=== PATIENT | male | born 1965 | race Caucasian/White ===

== ENCOUNTER → 2018-04-05 | Outpatient (CLI) | payer OTHER ==
--- NOTE | 2018-04-05 11:57 | RADIOLOGY IMAGING REPORT ---
FACILITY: [facility] - [place] PATIENT NAME: Juan Eng : 1965 MR: [id number] V: [id number] EXAM DATE: ORDERING PHYSICIAN: DAMON LAINEZ TECHNOLOGIST: Location: Patient: Juan Eng : 1965 Visit/Account:[id number] Date of Sevice: 04/05/2018 Thyroid Ultrasound HISTORY: Thyroid nodule. COMPARISON: None. FINDINGS: SIZE: Normal. Right lobe: 5.0 x 1.8 x 2.1 cm Left lobe: 4.1 x 1.1 x 1.5 cm Isthmus: 4 mm PARENCHYMA: Homogeneous. NODULES: Right lobe: * Inferior pole hypoechoic, solid nodule measures 6 mm x 6 mm x 3 mm Left lobe: * Inferior pole hypoechoic, solid nodule measures 9 mm x 8 mm x 5 mm Isthmus: * None discrete. VASCULARITY: Within normal limits. ADDITIONAL FINDINGS: None. IMPRESSION: 1. Subcentimeter hypoechoic thyroid nodules bilaterally. These do not meet current criteria for fin e-needle aspiration according to the [place] thyroid Association guidelines as reported below. REFERENCE: 2015 [place] Thyroid [employer] Management Guidelines for Adult Patients with Thyroid Nodules and D ifferentiated Thyroid Cancer: The [place] Thyroid Association Guidelines Task Force on Thyroid Nodul es and Differentiated Thyroid Cancer. SONOGRAPHIC PATTERNS: * Benign: Purely cystic nodules (no solid component); estimated risk of malignancy <1 percent; no bi opsy recommended. * Very Low Suspicion: Spongiform or partially cystic nodules without any of the sonographic features described in low, intermediate, or high suspicion patterns; estimated risk of malignancy <3 percent; consider FNA at > 2 cm (Observation without FNA is also a reasonable option). * Low Suspicion: Isoechoic or hyperechoic solid nodule, or partially cystic nodule with eccentric so lid areas, without microcalcification, irregular margin or ETE (extra-thyroidal extension), or taller than wide shape; estimated risk of malignancy 5-10 percent; recommend FNA at >1.5 cm. * Intermediate Suspicion: Hypoechoic solid nodule with smooth margins without microcalcifications, E TE (extra-thyroidal extension), or taller than wide shape; estimated risk of malignancy 10-20 percent ; recommend FNA at > 1 cm. * High Suspicion: Solid hypoechoic nodule or solid hypoechoic component of a partially cystic nodule with one or more of the following features: irregular margins (infiltrative, microlobulated), microc alcifications, taller than wide shape, rim calcifications with small extrusive soft tissue component, evidence of ETE (extra-thyroidal extension); estimated risk of malignancy >70-90 percent; recommend FNA at > 1 cm. NOTES: * Although a sonographically suspicious subcentimeter thyroid nodule without evidence of extrathyroi bryan extension or sonographically suspicious lymph nodes may be observed with close sonographic follow -up rather than pursuing immediate FNA, patient age and preference may modify decision-making. A > 50% interval increase in nodule volume and/or development of new suspicious sonographic features are felt to be a valid reasons for potential re-aspiration of a nodule previously shown to have benig n FNA cytology. Report Dictated By: Rosas Gao at 04/05/2018 11:36 AM Report E-Signed By: Rosas Gao at 04/05/2018 11:53 AM NUZHATN:LUIS
== END ==
LOC: US 10:29
PROVIDERS: ATTEND Internal Medicine
DX: E04.2 Nontoxic multinodular goiter (principal)
CPT/HCPCS: 76536

== ENCOUNTER → 2018-04-08 | Outpatient (CLI) | payer OTHER ==
[2018-04-08 07:54] LABS: LDL CHOLESTEROL 74 mg/dl
== END ==
LOC: LAB 06:41
PROVIDERS: ATTEND Nurse Practitioner Psychiatric/Mental Health
DX: Z00.01 Encounter for general adult medical examination with abnormal findings (principal); Z79.899 Other long term (current) drug therapy
CPT/HCPCS: 36415; 82040; 82247; 82306; 82310; 82374; 82435; 82465; 82565; 82947; 83036; 83718; 84075; 84132; 84155; 84295; 84439; 84443; 84450; 84460; 84478; 84480; 84520; 85027

== ENCOUNTER → 2018-05-14 | Outpatient (CLI) | payer OTHER ==
[~2018-05-14] MED LIST: 5-HY50CA4 PO; AMIT-108 PO; ATOR40TA69 PO; BACL-1 PO; BREX1TAB PO; DESV100T14 PO; EMPA25TA PO; IMIQ1CRE5 TP; INSU300I SQ; LOSA100T67 PO; METO25TA93 PO; METXR500 PO; MULT-820 PO; OXYB5TAB86 PO; PANT40TA65 PO; TADA5TAB7 PO; VITA1CAP46 PO
[2018-05-14 14:20] LABS: PLATELET COUNT, AUTOMATED 269 K/uL (150-450)
== END ==
LOC: LAB 13:45
PROVIDERS: ATTEND Nurse Practitioner Family
DX: Z12.5 Encounter for screening for malignant neoplasm of prostate (principal); R50.9 Fever, unspecified; R10.9 Unspecified abdominal pain; R19.7 Diarrhea, unspecified
CPT/HCPCS: 36415; 82040; 82247; 82248; 82310; 82374; 82435; 82565; 82947; 84075; 84132; 84153; 84155; 84295; 84450; 84460; 84520; 85025; 86703; 86706; 86707; 87340; 87350; 87522

== ENCOUNTER → 2018-07-30 | Outpatient (CLI) | payer OTHER ==
[~2018-07-30] MED LIST changes: +CYCL10TA29 PO; +FLU60VIA41 IM; +IBUP800T37 PO; -LOSA100T67 PO; +LOSA100T69 PO; +METH4TAB66 PO; +OXYGENHOME INH
--- NOTE | 2018-07-30 12:38 | RADIOLOGY IMAGING REPORT ---
FACILITY: [facility] - [place] PATIENT NAME: Juan Eng : 1965 MR: [id number] V: [id number] EXAM DATE: ORDERING PHYSICIAN: SHAUN CHAO TECHNOLOGIST: Location: [facility] Patient: Juan Eng : 1965 Visit/Account:[id number] Date of Sevice: 07/30/2018 LUMBAR SPINE 4 VIEWS Indication: Back pain., Low back pain Comparison: None available FINDINGS: There are 5 lumbar type vertebral bodies. There is no acute osseous or acute alignment abnormality. There is mild diffuse spondylitic change noted. No spondylolisthesis is identified. Mild bilateral degenerative facet arthropathy is noted at L5-S1. The vertebral body heights appear well-maintained. IMPRESSION: 1. Mild multilevel degenerative disc space disease, no acute abnormality noted Report Dictated By: Robbin Silvestre at 07/30/2018 12:33 PM Report E-Signed By: Robbin Silvestre at 07/30/2018 12:34 PM WSN:[id number]
== END ==
LOC: RAD 12:01
PROVIDERS: ATTEND Nurse Practitioner Primary Care
DX: M51.35 Other intervertebral disc degeneration, thoracolumbar region (principal)
CPT/HCPCS: 72120

== ENCOUNTER 2018-08-05 08:28 | Emergency (ER) | payer OTHER ==
[2018-08-05] MEDS ORDERED: VITAMIN D AND C (08:46)
--- NOTE | 2018-08-05 09:12 | ER Report ---
History and Physical Time Seen By MD: 09:00 Hx. of Stated Complaint: PT TWEAKED HIS BACK 2 WEEKS AGO, WAS PUT ON MUSCLE RELAXANTS. NOW HE NOTES HIS CONDITION IS WORSENINGAND THE BOTTOM OF L FOOT IS NUMB SINCE YESTERDAY. WAS TOLD BY HIS PCP TO COME HERE HPI/ROS CHIEF COMPLAINT: back pain HISTORY OF PRESENT ILLNESS: Pt presents with back pain that has been ongoing x 2 wks; noticed pop in L back when he was lifting something; has had continued pain on left side of back, radiating down l leg. Pain has not been releived by muscle relaxants. Pain is moderate, exacerbated by movements. He notes bottom of l foot paresthesias. Denies weakness, new incontinence, perineal paresthesias, fevers, chills. REVIEW OF SYSTEMS: Constitutional: No fever, no chills. Eyes: No discharge. ENT: No sore throat. Cardiovascular: No chest pain, no palpitations. Respiratory: No cough, no shortness of breath. Gastrointestinal: No abdominal pain, no vomiting. Genitourinary: no incontinence Musculoskeletal: left gluteal pain, no mid back pain Skin: No rashes. Neurological: No headache. Remainder of the 14 system rev: Yes Allergies: Coded Allergies: povidone-iodine (Verified Allergy, Mild, RASH, 08/05/18) soap (Verified Allergy, Mild, RASH, 08/05/18) amoxicillin (Unverified Allergy, Unknown, 08/05/18) Home Meds Active Scripts Oxygen (OXYGEN) Inha, 2 L INH HS, #2 L Prov:BRUCE TAYLOR APRN-C 08/02/18 Ibuprofen (IBUPROFEN) 800 Mg Tablet, 1 TAB PO Q8H PRN for PAIN, #20 TAB 0 Refills Prov:SHAUN CHAO DNP, FNP-BC 07/30/18 Methylprednisolone (METHYLPREDNISOLONE) 4 Mg Tab.ds.pk, 4 MG PO DIRECTED, #1 PACK 0 Refills Prov:SHAUN CHAO DNP, FNP-BC 07/30/18 Cyclobenzaprine Hcl (CYCLOBENZAPRINE HCL) 10 Mg Tablet, 1 TAB PO TID PRN for BACK PAIN, #15 TAB 0 Refills Prov:SHAUN CHAO DNP, FNP-BC 07/30/18 Oxybutynin Chloride (OXYBUTYNIN CHLORIDE) 5 Mg Tablet, 1 TAB PO QDAY, #90 TAB 0 Refills Prov:BRUCE TAYLOR APRN-C 06/14/18 Metoprolol Tartrate (METOPROLOL TARTRATE) 25 Mg Tablet, 1 TAB PO BID, #60 TAB 12 Refills Prov:BRUCE TAYLOR APRN-C 05/14/18 Atorvastatin Calcium (ATORVASTATIN CALCIUM) 40 Mg Tablet, 1 TAB PO DAILY, #30 TAB 12 Refills Prov:BRUCE TAYLOR APRN-C 05/14/18 Reported Medications [Vitamin D And C] No Conflict Check 08/05/18 Tadalafil (CIALIS) Unknown Strength Tablet, PO QDAY 05/13/18 Vitamin B Complex (VITAMIN B COMPLEX) 1 Each Capsule, 1 EACH PO DAILY, CAPSULE 05/13/18 5-Hydroxytryptophan (5-HTP) 50 Mg Capsule, 50 MG PO DAILY, CAPSULE 05/13/18 Multivitamin (MULTIVITAMINS) 1 Each Tablet, 1 TAB PO DAILY, TAB 05/13/18 Insulin Glargine,Hum.rec.anlog (Quirino Leary) 300 Unit/1 Ml Insuln.pen, 16 UNIT SQ DAILY 05/13/18 Metformin Hcl (METFORMIN HCL ER) 500 Mg Tabcr, 2 TAB PO BID 05/13/18 Baclofen (BACLOFEN) 10 Mg Tablet, 1 TAB PO BID 05/13/18 Amitriptyline Hcl (AMITRIPTYLINE HCL) 50 Mg Tablet, 1 TAB PO QHS 05/13/18 Desvenlafaxine Succinate (Desvenlafaxine Succinate ER) 100 Mg Tab.er.24h, 1 TAB PO DAILY 05/13/18 Empagliflozin (Jardiance) 25 Mg Tablet, 1 TAB PO DAILY 05/13/18 Brexpiprazole (Rexulti) 1 Mg Tablet, 1 TAB PO DAILY 05/13/18 Losartan Potassium (LOSARTAN POTASSIUM) 100 Mg Tablet, 1 TAB PO DAILY 05/13/18 Pantoprazole Sodium (PANTOPRAZOLE SODIUM) 40 Mg Tablet.dr, 1 TAB PO DAILY 05/13/18 Discontinued Scripts Imiquimod (IMIQUIMOD) 1 Each Cream.pack, 1 JUAN MANUEL TP Mon, Weds, Fri for 30 Days, #30 GM 1 Refill Apply thin layer 3 days per week and leave in place for 8 hours then wash with mild soap and water. Prov:BRUCE TAYLOR TIMOTEO BULLET LUBRICANT MIXER-C 04/23/18 Reviewed Nurses Notes: Yes Smoking Status: Current: Every Day Smoker Hx Substance Use Disorder: No Hx Alcohol Use: Yes (RARE) Constitutional Vital Sign - Last 24 Hours 08/05/18 08/05/18 08:38 09:16 Temp 99.0 Pulse 89 79 Resp 20 B/P (MAP) 132/82 115/85 (95) Pulse Ox 95 95 O2 Delivery Room Air Physical Exam General Appearance: [The patient is alert, has no immediate need for airway protection and no signs of toxicity.] Pupils equal and round no pallor or injection. ENT, Mouth: Mucous membranes are moist. Respiratory: There are no retractions, lungs are clear to auscultation. Cardiovascular: Regular rate and rhythm. Gastrointestinal: Abdomen is soft and non tender, no masses, bowel sounds normal. Neurological: alert, oriented, no focal neurologic deficits Skin: Warm and dry, no rashes. Musculoskeletal: Extremities are nontender, nonswollen and have full range of motion. Pt has no midline back ttp, no paraspinal lumbar ttp. He has left gluteal ttp that partially reproduces symptoms. + SLR on left. Nl rectal tone. No foot drop. 5/5 ms throughout lower ext. Nl cremasterics. DIFFERENTIAL DIAGNOSIS: After history and physical exam differential diagnosis w as considered for back pain including but not limited to muscular pain, cauda equina, herniated disc, spine fracture, intra-abdominal causes and urinary tract infection. Medical Decision Making ED Course/Re-evaluation ED Course Pt presents presumably for eval for cauda equina. He has sgs/symptoms very c/w sciatica; he does not have clincal e/o cauda equina. Does not want further pain medication at this time. I discussed outpt management and SRP's; pt comfortable with this plan. Decision to Disposition Date: Aug 05, 2018 Decision to Disposition Time: 09:10 Depart Departure Latest Vital Signs Vital Signs Date Time Temp Pulse Resp B/P (MAP) Pulse Ox O2 Delivery O2 Flow Rate FiO2 08/05/18 09:16 79 115/85 (95) 95 08/05/18 08:38 99.0 20 Room Air Impression: Primary Impression: Sciatica Condition: Condition Unchanged Disposition: HOME OR SELF-CARE Referrals: BRUCE TAYLOR APRN BULLET LUBRICANT MIXER-C (PCP) Patient Instructions: Sciatica (ED) Additional Instructions: As we discussed, please return immediately for foot weakness, numbness around groin, inability to have an erection, or any concerns. Stretching daily, especially before bed and first thing in the morning is important. Accupressure with a tennis ball may help Massage may help If symptoms do not improve in 1 week, I recommend your primary doctor refer you to a physical therapist if needed. Problem Qualifiers Primary Impression: Sciatica Laterality: left Qualified Codes: M54.32 - Sciatica, left side BRADY THORNTON MD Aug 05, 2018 09:12
[2018-08-05 09:16] VITALS: BP 115/85
[2018-08-09] MEDS ORDERED: OXYB5TAB86 PO (12:59)
== END 2018-08-05 09:18 | disposition home or self-care (01) ==
LOC: ER 08:52
DX: M54.32 Sciatica, left side (principal)
CPT/HCPCS: 99281

== ENCOUNTER → 2018-10-21 | Outpatient (CLI) | payer OTHER ==
[~2018-10-21] MED LIST changes: -LOSA100T69 PO; +LOSA100T75 PO; +VITAMIN D AND C
[2018-10-21 14:07] LABS: PLATELET COUNT, AUTOMATED 285 K/uL (150-450)
--- NOTE | 2018-10-21 14:51 | RADIOLOGY IMAGING REPORT ---
FACILITY: [facility] [place] PATIENT NAME: Juan Eng : 1965 MR: [id number] V: [id number] EXAM DATE: ORDERING PHYSICIAN: BRUCE TAYLOR TECHNOLOGIST: Location: [facility] Patient: Juan Eng : 1965 Visit/Account:[id number] Date of Sevice: 10/21/2018 2 VIEWS CHEST INDICATION: Fever and body aches. History of smoking. COMPARISON: None available FINDINGS: Cardiomediastinal silhouette and pulmonary vessels within normal limits. There is no focal infiltrate or lobar consolidation. There is no pneumothorax or pleural effusion. No nodule. Upper abdomen is unremarkable. No acute bony abnormality. IMPRESSION: 1. No acute cardiopulmonary process. Report Dictated By: Josue Rodriges at 10/21/2018 2:42 PM Report E-Signed By: Josue Rodriges at 10/21/2018 2:44 PM WSN:[id number]
== END ==
LOC: LAB 13:51
PROVIDERS: ATTEND Nurse Practitioner Family
DX: R50.9 Fever, unspecified (principal)
CPT/HCPCS: 36415; 71046; 81001; 82040; 82247; 82310; 82374; 82435; 82565; 82947; 84075; 84132; 84155; 84295; 84450; 84460; 84520; 85025; 86140

== ENCOUNTER 2018-11-29 18:02 | Emergency (ER) | payer OTHER ==
[2018-11-29] MEDS ORDERED: INSU100I8 SQ (18:09)
[2018-11-29] MEDS ORDERED: ASPIRIN 81 MG CHEW CHEW ONE (18:10)
--- NOTE | 2018-11-29 18:11 | ER Report ---
History and Physical Time Seen By MD: 18:11 HPI/ROS CHIEF COMPLAINT: chest pain HISTORY OF PRESENT ILLNESS: This is a 53 year old male. He started having left sternal chest pain at about 1600 today. [place] flushing as well. Mild chest tightness, but not short of breath. Was at rest when this happened. Does not change with exertion. Mild nausea, no vomiting. Has risk factors of Diabetes, Hypertention, Hyperlipidemia, smoking. Had a cath about 10 years ago, negative. Family history of cardiac and stroke. He has sleep apnea, but no problem noel athing today. No recent illness, sore throat, congestion. Normal bowel and bladder function. No fevers/chills, cough. Also with some anxiety. Allergies: Coded Allergies: povidone-iodine (Verified Allergy, Mild, RASH, 11/29/18) soap (Verified Allergy, Mild, RASH, 11/29/18) amoxicillin (Unverified Allergy, Unknown, 11/29/18) Home Meds Active Scripts Oxybutynin Chloride (OXYBUTYNIN CHLORIDE) 5 Mg Tablet, 1 TAB PO QDAY, #90 TAB 1 Refill Prov:BRUCE TAYLOR APRN-C 08/09/18 Oxygen (OXYGEN) Inha, 2 L INH HS, #2 L Prov:BRUCE TAYLOR APRN-C 08/02/18 Ibuprofen (IBUPROFEN) 800 Mg Tablet, 1 TAB PO Q8H PRN for PAIN, #20 TAB 0 Refills Prov:SHAUN CHAO DNP [facility]- 07/30/18 Cyclobenzaprine Hcl (CYCLOBENZAPRINE HCL) 10 Mg Tablet, 1 TAB PO TID PRN for RONIT K PAIN, #15 TAB 0 Refills Prov:SHAUN CHAO DNP, [facility]- 07/30/18 Metoprolol Tartrate (METOPROLOL TARTRATE) 25 Mg Tablet, 1 TAB PO BID, #60 TAB 12 Refills Prov:BRUCE TAYLOR APRNPAshokC 05/14/18 Atorvastatin Calcium (ATORVASTATIN CALCIUM) 40 Mg Tablet, 1 TAB PO DAILY, #30 TAB 12 Refills Prov:BRUCE TAYLOR APRNC 05/14/18 Reported Medications Insulin Degludec (Tresiba Flextouch U-100) 100 Unit/Ml (3 Ml) Insuln.pen, 19 UNITS SQ 11/29/18 [Vitamin D And C] No Conflict Check 08/05/18 Tadalafil (CIALIS) Unknown Strength Tablet, PO QDAY 05/13/18 Vitamin B Complex (VITAMIN B COMPLEX) 1 Each Capsule, 1 EACH PO DAILY, CAPSULE 05/13/18 Multivitamin (MULTIVITAMINS) 1 Each Tablet, 1 TAB PO DAILY, TAB 05/13/18 Metformin Hcl (METFORMIN HCL ER) 500 Mg Tabcr, 2 TAB PO BID 05/13/18 Amitriptyline Hcl (AMITRIPTYLINE HCL) 50 Mg Tablet, 1 TAB PO QHS 05/13/18 Desvenlafaxine Succinate (Desvenlafaxine Succinate ER) 100 Mg Tab.er.24h, 1 TAB PO DAILY 05/13/18 Empagliflozin (Jardiance) 25 Mg Tablet, 1 TAB PO DAILY 05/13/18 Brexpiprazole (Rexulti) 1 Mg Tablet, 1 TAB PO DAILY 05/13/18 Pantoprazole Sodium (PANTOPRAZOLE SODIUM) 40 Mg Tablet.dr, 1 TAB PO DAILY 05/13/18 Discontinued Reported Medications 5-Hydroxytryptophan (5-HTP) 50 Mg Capsule, 50 MG PO DAILY, CAPSULE 05/13/18 Insulin Glargine,Hum.rec.anlog (Quirino Leary) 300 Unit/1 Ml Insuln.pen, 16 UNIT SQ DAILY 05/13/18 Baclofen (BACLOFEN) 10 Mg Tablet, 1 TAB PO BID 05/13/18 Losartan Potassium (LOSARTAN POTASSIUM) 100 Mg Tablet, 1 TAB PO DAILY 05/13/18 Discontinued Scripts Methylprednisolone (METHYLPREDNISOLONE) 4 Mg Tab.ds.pk, 4 MG PO DIRECTED, #1 PACK 0 Refills Prov:SHAUN CHAO DNP, BOMB TECHNICIAN-BC 07/30/18 Reviewed Nurses Notes: Yes Smoking Status: Current: Every Day Smoker Hx Substance Use Disorder: No Hx Alcohol Use: Yes (RARE) Constitutional Vital Sign - Last 24 Hours 11/29/18 11/29/18 11/29/18 11/29/18 18:05 18:06 18:17 18:32 Temp 98.4 Pulse 89 92 90 Resp 16 11 21 B/P (MAP) 145/90 145/90 (108) 126/106 (113) Pulse Ox 96 96 91 O2 Delivery Room Air 11/29/18 11/29/18 11/29/18 11/29/18 18:40 18:47 19:00 19:02 Pulse 87 89 Resp 10 9 B/P (MAP) 129/86 (100) 127/82 (97) Pulse Ox 90 89 11/29/18 11/29/18 11/29/18 11/29/18 19:17 19:20 19:47 20:00 Pulse 85 82 Resp 16 11 B/P (MAP) 132/88 (103) 125/85 (98) Pulse Ox 91 92 11/29/18 11/29/18 11/29/18 11/29/18 20:05 20:30 20:35 21:00 Pulse 83 81 Resp 11 23 B/P (MAP) 124/87 (99) 117/79 (92) Pulse Ox 93 93 11/29/18 11/29/18 11/29/18 11/29/18 21:05 21:35 21:40 22:10 Pulse 82 79 78 85 Resp 19 19 20 13 Pulse Ox 94 92 93 90 11/29/18 11/29/18 11/29/18 11/29/18 22:40 23:10 23:15 23:30 Pulse 87 88 84 84 Resp 10 14 8 14 B/P (MAP) 154/151 (152) Pulse Ox 88 89 89 88 11/29/18 23:45 Pulse 79 Resp 10 Pulse Ox 90 Physical Exam General Appearance: The patient is alert. No acute distress, but a little anxious. Eyes: Pupils are equal, round. No pallor, injection or icterus. ENT: Mucous membranes are moist. Normal oral mucosa. Posterior oropharynx is normal. Neck: Supple and non tender. Respiratory: Lungs are clear to auscultation. Cardiovascular: Regular rate and rhythm. No murmurs, gallops or rubs. Normal capillary refill. Gastrointestinal: Abdomen is soft and non tender. Nondistended. Normal active bowel sounds. Neurological: Alert and oriented x3. No focal neurologic deficits Skin: Warm and dry. Musculoskeletal: Extremities are nontender. No tenderness in palpation of the back\spine. DIFFERENTIAL DIAGNOSIS: After history and physical exam, differential diagnosis was considered for chest pain including but not limited to myocardial ischemia, pericarditis pulmonary embolus, chest wall pain, pleural inflammation and pulmonary infectious causes. Medical Decision Making Data Points Result Diagram: 11/29/18180911/29/181809 Laboratory Hematology Test 11/29/18 18:10 11/29/18 18:14 11/29/18 21:13 Red Blood Count 5.17 M/uL (4.00-5.60) Mean Corpuscular Volume 89.0 fL (80.0-96.0) Mean Corpuscular Hemoglobin 30.5 pg (26.0-33.0) Mean Corpuscular Hemoglobin Concent 34.2 g/dL (32.0-36.0) Red Cell Distribution Width 13.8 % (11.5-14.5) Mean Platelet Volume 9.2 fL (7.2-11.1) Neutrophils (%) (Auto) 55.5 % (39.4-72.5) Lymphocytes (%) (Auto) 30.8 % (17.6-49.6) Monocytes (%) (Auto) 9.7 % (4.1-12.4) Eosinophils (%) (Auto) 3.3 % (0.4-6.7) Basophils (%) (Auto) 0.7 % (0.3-1.4) Nucleated RBC Relative Count (auto) 0.0 /100WBC Neutrophils # (Auto) 4.4 K/uL (2.0-7.4) Lymphocytes # (Auto) 2.5 K/uL (1.3-3.6) Monocytes # (Auto) 0.8 K/uL (0.3-1.0) Eosinophils # (Auto) 0.3 K/uL (0.0-0.5) Basophils # (Auto) 0.1 K/uL (0.0-0.1) Nucleated RBC Absolute Count (auto) 0.00 K/uL Sodium Level 141 mmol/L (137-145) Potassium Level 3.2 mmol/L (3.5-5.0) Chloride Level 103 mmol/L (98-107) Carbon Dioxide Level 27 mmol/L (22-30) Blood Urea Nitrogen 12 mg/dl (9-21) Creatinine 1.10 mg/dl (0.66-1.25) Glomerular Filtration Rate Calc > 60.0 Random Glucose 203 mg/dl (75-110) Calcium Level 8.4 mg/dl (8.4-10.2) Total Bilirubin 0.9 mg/dl (0.2-1.3) Aspartate Amino Transf (AST/SGOT) 25 U/L (0-35) Alanine Aminotransferase (ALT/SGPT) 29 U/L (0-56) Alkaline Phosphatase 106 U/L (0-126) Total Protein 7.6 g/dl (6.3-8.2) Albumin 4.5 g/dl (3.5-5.0) D-Dimer Quantitative (PE/DVT) < 0.27 ug/ml (0-0.50) Troponin I < 0.012 ng/ml Chemistry Test 11/29/18 18:10 11/29/18 18:14 11/29/18 21:13 White Blood Count 8.0 k/uL (4.5-11.0) Red Blood Count 5.17 M/uL (4.00-5.60) Hemoglobin 15.7 g/dL (14.0-18.0) Hematocrit 46.0 % (42.0-52.0) Mean Corpuscular Volume 89.0 fL (80.0-96.0) Mean Corpuscular Hemoglobin 30.5 pg (26.0-33.0) Mean Corpuscular Hemoglobin Concent 34.2 g/dL (32.0-36.0) Red Cell Distribution Width 13.8 % (11.5-14.5) Platelet Count 268 K/uL (150-450) Mean Platelet Volume 9.2 fL (7.2-11.1) Neutrophils (%) (Auto) 55.5 % (39.4-72.5) Lymphocytes (%) (Auto) 30.8 % (17.6-49.6) Monocytes (%) (Auto) 9.7 % (4.1-12.4) Eosinophils (%) (Auto) 3.3 % (0.4-6.7) Basophils (%) (Auto) 0.7 % (0.3-1.4) Nucleated RBC Relative Count (auto) 0.0 /100WBC Neutrophils # (Auto) 4.4 K/uL (2.0-7.4) Lymphocytes # (Auto) 2.5 K/uL (1.3-3.6) Monocytes # (Auto) 0.8 K/uL (0.3-1.0) Eosinophils # (Auto) 0.3 K/uL (0.0-0.5) Basophils # (Auto) 0.1 K/uL (0.0-0.1) Nucleated RBC Absolute Count (auto) 0.00 K/uL Glomerular Filtration Rate Calc > 60.0 Calcium Level 8.4 mg/dl (8.4-10.2) Total Bilirubin 0.9 mg/dl (0.2-1.3) Aspartate Amino Transf (AST/SGOT) 25 U/L (0-35) Alanine Aminotransferase (ALT/SGPT) 29 U/L (0-56) Alkaline Phosphatase 106 U/L (0-126) Total Protein 7.6 g/dl (6.3-8.2) Albumin 4.5 g/dl (3.5-5.0) D-Dimer Quantitative (PE/DVT) < 0.27 ug/ml (0-0.50) Troponin I < 0.012 ng/ml Coagulation Test 11/29/18 18:14 D-Dimer Quantitative (PE/DVT) < 0.27 ug/ml EKG/Imaging EKG Interpretation 12 lead EKG: At 1810, initial EKG Rhythm: Normal sinus rhythm, rate 89 [place]: normal QRS: normal ST segments: normal 12 lead EKG: Repeat EKG at 2107 Rhythm: normal sinus rhythm, rate 77 [place]: normal QRS: normal ST segments: normal Imaging Examination: CHEST PA LAT Comparison: 10/21/2018. History: Chest pain. Smoker. Findings: No consolidation, nodule, or evidence of acute peribronchial inflammation. No pneumothorax, edema, or effusion. Cardiac and hilar contour size is normal. Visualized bowel gas pattern is unremarkable. Osseous structures are intact. IMPRESSION: No evidence of acute cardiopulmonary disease. Report Dictated By: Sergey Chan MD at 11/29/2018 6:29 PM ED Course/Re-evaluation Clinical Indication for ER IV: Hydration, IV Access ED Course After my initial evaluation, cardiac workup was begun. The patient did receive aspirin. Initial EKG was negative. Imaging negative and labs unremarkable. Repeat EKG and troponin was done later on and again negative. We had a long discussion regarding the difference treating heart attack and angina, and at this time would recommend follow-up stress testing given his risk factors. He expressed understanding and will talk to his primary care doctor about getting set up with funeral home location manager to do this. Labs only showed a mild decrease in his potassium, and blood sugar being slightly elevated at 203. Decision to Disposition Date: Nov 29, 2018 Decision to Disposition Time: 23:47 Depart Departure Latest Vital Signs Vital Signs Date Time Temp Pulse Resp B/P (MAP) Pulse Ox O2 Delivery O2 Flow Rate FiO2 11/29/18 23:45 79 10 90 11/29/18 23:30 154/151 (152) 11/29/18 18:05 98.4 Room Air Impression: Primary Impression: Chest pain Condition: Improved Disposition: HOME OR SELF-CARE Referrals: BRUCE TAYLOR APRN (PCP) Patient Instructions: Chest Pain (ED) Additional Instructions: chest pain workup was negative for heart attack, blood clots, pneumonia, or other serious problem tonight. Based on your risk factors, we would recommend that the next step would be to have a stress test done. Talk to your primary care provider tomorrow about arranging follow-up with them or with cardiology. Return if needed for recurrent symptoms, worse chest pain, worse shortness of breath. Problem Qualifiers Primary Impression: Chest pain Chest pain type: unspecified Qualified Codes: R07.9 - Chest pain, unspecified LEONA RUSS MD Nov 29, 2018 18:11
--- NOTE | 2018-11-29 18:16 | EKG ---
FACILITY: [facility] PATIENT NAME: MARY JO FUNG : [id number] MR: [id number] V: [id number] EXAM DATE: ORDERING PHYSICIAN: LEONA RUSS TECHNOLOGIST: MARYAM Test Reason : CHEST PAIN Blood Pressure : / mmHG Vent. Rate : 089 BPM Atrial Rate : 089 BPM P-R Int : 144 ms QRS Dur : 088 ms QT Int : 388 ms P-R-T Axes : 063 067 044 degrees QTc Int : 472 ms Sinus rhythm Possible biatrial enlargement Nonspecific T wave flattening No previous ECGs available Confirmed by SAMEER IBARRA ([id number]) on 11/30/2018 6:01:04 AM Referred By: ALLEN Confirmed By:SAMEER IBARRA
[2018-11-29 18:18] LABS: PLATELET COUNT, AUTOMATED 268 K/uL (150-450)
--- NOTE | 2018-11-29 18:34 | RADIOLOGY IMAGING REPORT ---
FACILITY: [facility] PATIENT NAME: Juan Eng : 1965 MR: [id number] V: [id number] EXAM DATE: ORDERING PHYSICIAN: LEONA RUSS TECHNOLOGIST: Location: [facility] - [place] Patient: Juan Egn : 1965 Visit/Account:[id number] Date of Sevice: 11/29/2018 Examination: CHEST PA LAT Comparison: 10/21/2018. History: Chest pain. Smoker. Findings: No consolidation, nodule, or evidence of acute peribronchial inflammation. No pneumothorax, edema, or effusion. Cardiac and hilar contour size is normal. Visualized bowel gas pattern is unrema rkable. Osseous structures are intact. IMPRESSION: No evidence of acute cardiopulmonary disease. Report Dictated By: Sergye Chan MD at 11/29/2018 6:29 PM Report E-Signed By: Sergey Chan MD at 11/29/2018 6:30 PM WSN:[id number]
--- NOTE | 2018-11-29 21:50 | EKG ---
FACILITY: [facility] [place] PATIENT NAME: MARY JO FUNG : [id number] MR: [id number] V: [id number] EXAM DATE: ORDERING PHYSICIAN: LEONA RUSS TECHNOLOGIST: JANNY Gaspar Reason : Blood Pressure : / mmHG Vent. Rate : 077 BPM Atrial Rate : 077 BPM P-R Int : 140 ms QRS Dur : 094 ms QT Int : 422 ms P-R-T Axes : 068 063 042 degrees QTc Int : 477 ms Sinus rhythm Possible biatrial enlargement Similar to previous Confirmed by SAMEER IBARRA ([id number]) on 11/30/2018 6:09:58 AM Referred By: Confirmed By:SAMEER IBARRA
[2018-11-29 23:30] VITALS: BP 154/151
== END 2018-11-30 00:02 | disposition home or self-care (01) ==
LOC: ER 18:21
DX: R07.9 Chest pain, unspecified (principal)
CPT/HCPCS: 36415; 71046; 82040; 82247; 82310; 82374; 82435; 82565; 82947; 84075; 84132; 84155; 84295; 84450; 84460; 84484; 84520; 85025; 85379; 93005; 99284

== ENCOUNTER → 2018-12-31 | Outpatient (CLI) | payer OTHER ==
[~2018-12-31] MED LIST changes: +INSU100I8 SQ
--- NOTE | 2018-12-31 16:55 | RADIOLOGY IMAGING REPORT ---
[facility] PATIENT NAME: Juan Eng : 1965 MR: [id number] V: [id number] EXAM DATE: [id number] ORDERING PHYSICIAN: BRUCE TAYLOR TECHNOLOGIST[place] [facility] [place] : 1965 Visit/Account:[id number] Date of Sevice: 12/31/2018 EXAMINATION: Single Isotope SPECT Imaging with Exercise and Gated SPECT Imaging DATE OF EXAMINATION: December 31, 2018 DATE OF INTERPRETATION: December 31, 2018 REQUESTING PHYSICIAN: BRUCE TAYOLR INDICATION: The patient is a 53-year-old male evaluated for chest pain. PROCEDURE: After informed consent the patient received an intravenous injection of 13.0 mCi of Tc-9 9m sestamibi followed at the appropriate time interval by rest imaging. The patient then exercised a ccording to the standard Keanu protocol for 6 minutes 21 seconds achieving 7 METS. Resting heart rat e was 101 bpm with a peak heart rate of 164 bpm which is 97 % of maximal predicted heart rate for ag e. Blood pressure at rest was 141 / 92; blood pressure during exercise was 194 / 94. There was no r eported chest pain during exercise. Exercise was discontinued because of fatigue. Baseline EKG demo nstrates sinus rhythm. There were no EKG changes of ischemia at peak exercise. Approximately one mi nute and 30 seconds prior to the termination of exercise, the patient received an intravenous injecti on of 28.8 mCi of Tc-99m sestamibi followed by stress imaging. RAW DATA: Examination of the summed raw data revealed a good quality study. MYOCARDIAL PERFUSION: The tomographic images demonstrate normal perfusion rest and stress, no areas of infarct or ischemia seen. GATED IMAGES: The gated images demonstrate normal regional wall motion and thickening LVEF 64% IMPRESSION: 1. Negative exercise stress ECG for angina or ECG changes of ischemia at a good exercise level. 2. Normal myocardial perfusion scan. 3. Normal LV systolic function; LVEF 64%. Report Dictated By: Aashish Ruvalcaba MD at 12/31/2018 4:47 PM Report E-Signed By: Aashish Ruvalcaba MD at 12/31/2018 4:51 PM WSN:[id number]
--- NOTE | 2019-01-01 06:28 | RT STRESS TEST REPORT ---
FACILITY: [facility] [place] PATIENT NAME: MARY JO FUNG : [id number] MR: [id number] V: [id number] EXAM DATE: ORDERING PHYSICIAN: BRUCE TAYLOR TECHNOLOGIST: Celeste Ac[employer] Time: 2018-12-31 14:48:13 Total Exercise Time: 00:06:21 Test Indications: Chest Discomfort Medications: see nuclear med sheet Protocol: ERMA 2 Max HR: 164 BPM 97% of Pred: 169 BPM Max BP: 194/094 mmHG Max Work Load: 7.5 METS Confirmed by KALEY CALDERON ([id number]) on 01/01/2019 6:28:04 AM Referred By: Overread By: KALEY CALDERON
== END ==
LOC: NUC 00:38
PROVIDERS: ATTEND Nurse Practitioner Family
DX: R07.9 Chest pain, unspecified (principal)
CPT/HCPCS: 78452; 93017; A9500

== ENCOUNTER → 2019-04-12 | Outpatient (CLI) | payer OTHER ==
[2019-04-12 08:57] LABS: PLATELET COUNT, AUTOMATED 261 K/uL (150-450)
[2019-04-12 10:17] LABS: LDL CHOLESTEROL 98 mg/dl
== END ==
LOC: LAB 08:44
PROVIDERS: ATTEND Nurse Practitioner Family
DX: Z12.5 Encounter for screening for malignant neoplasm of prostate (principal); I10 Essential (primary) hypertension
CPT/HCPCS: 36415; 82040; 82247; 82310; 82374; 82435; 82465; 82565; 82947; 83718; 84075; 84132; 84153; 84155; 84295; 84443; 84450; 84460; 84478; 84520; 85025